=== PATIENT | female | born 1995 | race Caucasian/White ===

== ENCOUNTER 2017-12-01 19:45 | Emergency (ER) | payer MEDICAID, SELFPAY ==
[2017-12-01 19:47] VITALS: BP 134/108; PULSE 95; RESP 20; TEMP 36.7; O2SAT 95; BMI 23.2
[2017-12-01 20:50] VITALS: O2SAT 97
--- NOTE | 2017-12-01 20:52 | ED.VISSUMM ---
- ER Visit Summary Date of Service: 12/01/17 Chief Complaint: Cough History of Present Illness: The patient is a 22 F with no primary care physician. She reports that she has a cough began 1 week ago. Is productive yellow sputum without blood. She has had subjective fever and chills. She has been wheezing. She does not have an inhaler. She has had a use inhaler in the past. She reports that she has mild shortness of breath with exertion. She denies any chest pain. No sore throat. No other complaints. Physical Examination: Vitals: Stable. Afebrile. General: Well-nourished and well-developed. Head: Normocephalic atraumatic. HEENT: Serous effusion on the right. Posterior oropharyngeal erythema. No tonsillar exudate or enlargement. No peritonsillar abscess Neck: Supple, no lymphadenopathy. No JVD. Nontender. Cardiovascular: Regular rate and rhythm. No murmurs. Respiratory: No respiratory distress. Clear to auscultation bilaterally. Abdominal: Soft, nontender, nondistended, normal bowel sounds. No guarding, rebound, or peritoneal signs. Back: Nontender. Extremities: Nontender, no edema. Skin: Normal color, no rash. Neurologic: Alert and oriented ?3. Cranial nerves II through XII are intact. Normal strength and sensation. Psych: Normal affect. Test Results: Chest x-ray is normal. Emergency Department Course and Treatment: Patient was treated with albuterol Atrovent aerosols. She was given Zithromax and prednisone p.o. She is resting comfortably. Treatment Plan: Patient will be discharged on Zithromax, 4 day burst of prednisone, and albuterol MDI. Instructed to follow-up Dr. Floyd in 3-5 days if not improving. Return to the emergency department for any worsening symptoms. Disposition: To home in improved and stable condition. Impression: 1. URI. 2. Tobacco abuse. This note was generated with [employer] dictation software. It may contain incorrect words, spelling, and punctuation that were not noted in review of the chart prior to signing ED Disposition - Plan for ED Patient: Disposition: Home or Assisted Living Chief Complaint: Cough Instructions: ED Upper Resp Infec Abx Tx Prescriptions: Azithromycin [Zithromax] 250 mg PO DAILY #4 tablet Prednisone [Deltasone] 40 mg PO DAILY #10 tablet Referrals: Kerry Floyd MD [STAFF PHYSICIAN] - 3-5 Days if not improving
[2017-12-01] MEDS: INHALER, ASSIST DEVICES 1 EACH SPACER INHALATION (20:55)
[2017-12-01] MEDS: Ipratropium/Albuterol Sulfate 3 ML AMPUL.NEB INHALATION (20:56)
[2017-12-01 20:58] VITALS: PULSE 98; RESP 18
--- NOTE | 2017-12-01 21:18 | ED.RN ---
Pt was seen walking out without medications or discharge paperwork at 2109.
== END 2017-12-01 21:24 | disposition home or self-care (01) ==
PROVIDERS: Emergency Provider Emergency Medicine
DX: J06.9 Acute upper respiratory infection, unspecified (principal); Z72.0 Tobacco use
CPT/HCPCS: 71046; 94640; 94664; 99282

== ENCOUNTER 2017-12-07 00:14 | Emergency (ER) | payer MEDICAID, SELFPAY ==
[2017-12-07 00:14] VITALS: BP 134/96; PULSE 92; RESP 16; TEMP 36.4; O2SAT 99; BMI 22.6
--- NOTE | 2017-12-07 00:28 | ED.DCSUM_ITS ---
- ER Visit Summary Date of Service: 12/07/17 Chief Complaint: Left third finger swelling History of Present Illness: The patient is a 22 F presents to the emergency department with an abscess on her left finger. Patient states that she cut the finger about a week ago. States that it been healing up okay, but then she noticed some redness. She tried put the finger with a needle and some pus came out. She then cut it with a wood box maker yesterday. She states since then, the redness has increased. She states she began have some redness on the back of her hand. She denies any fevers or chills. She does have a history of prior staph infection. She takes no daily medications. Her tetanus is up-to-date. Physical Examination: Exam is relatively unremarkable. Patient does have localized abscess over the mid phalanges on the palmar aspect of the left third finger. There is some superficial streaking on the dorsum of the hand that does not cross the wrist. She is able to extend the finger. There is no pain palpation along the flexor sheath. There is no significant edema of the finger. Her pulses are normal. Her two-point discrimination is preserved. Test Results: [] Emergency Department Course and Treatment: The patient is a superficial abscess over the pad of her mid phalanges on the left third finger. There is no evidence of flexor tenosynovitis. She underwent digital block. The area was cleaned and prepped. Small incision was made. Loculations and purulence were able to be expressed. I did leave the area open but culture was obtained. The patient did have improvement of her symptoms. She will be placed on Bactrim. She will be given outpatient follow-up with plastic surgery for wound reevaluation. I did certified substance abuse counselor her that if her symptoms are not improving in the next 24-48 hours, she needs to return here for reevaluation. She is comfortable this plan of care. Treatment Plan: [] Disposition: Discharge Impression: Superficial abscess left 3rd finger with I+D This note was generated with [employer] dictation software. It may contain incorrect words, spelling, and punctuation that were not noted in review of the chart prior to signing ED Disposition - Plan for ED Patient: Disposition: Home or Assisted Living Chief Complaint: Cellulitis Instructions: ED Abscess IandD Prescriptions: Hydrocodone Bitart/Apap 5-325 [Sidney 5MG-325MG] 1 tab PO Q4H PRN PRN 2 Days #5 tab PRN Reason: Pain Smz/Tmp Ds [Bactrim Ds] 1 tab PO BID #14 tab Referrals: Goran Archer MD [STAFF PHYSICIAN] -
[2017-12-07] MEDS: Smz/Tmp Ds Tablet 1 TABLET PO (00:33)
[2017-12-07] MEDS: HYDROcodone Bitartrate/Apap 5/325 Tablet PO (00:33)
[2017-12-07] MEDS: Bupivacaine Mpf 0.5% 30 ML VIAL INFILT (00:33)
[2017-12-07 01:26] VITALS: PULSE 88; RESP 16
== END 2017-12-07 01:28 | disposition home or self-care (01) ==
LOC: ED 00:30
PROVIDERS: Emergency Provider Emergency Medicine
DX: L02.512 Cutaneous abscess of left hand (principal); Z72.0 Tobacco use
CPT/HCPCS: 26010; 10060; 87070; 87077; 87186; 87205; 99284

== ENCOUNTER 2017-12-25 21:37 | Emergency (ER) | payer MEDICAID, SELFPAY ==
[2017-12-25 21:39] VITALS: BP 123/84; PULSE 97; RESP 24; TEMP 36.8; O2SAT 90; BMI 22.3
--- NOTE | 2017-12-25 22:05 | RAD_ITS ---
STUDY: X-RAY CHEST REASON FOR EXAM: Female, 22 years old. Wheeze and coughing. TECHNIQUE: PA and lateral chest. COMPARISON: 12/01/2017. FINDINGS: The lungs are clear and expanded. There is no demonstrated pleural abnormality. Normal size heart. Normal mediastinum and roger. Normal visualized pulmonary arteries. Normal visualized aortic arch and descending thoracic aorta. Normal visualized thoracic spine. Normal visualized ribs, clavicles, and shoulders. There is no demonstrated abnormality of the visualized soft tissue structures of the upper abdomen. RAD/Chest PA and Lateral IMPRESSION: Normal x-ray examination of the chest. Electronically Signed: Desiree Lockett MD at 22:20 EDT Tel , Service support ,
[2017-12-25 22:15] VITALS: PULSE 96; RESP 18
[2017-12-25] MEDS: Ipratropium/Albuterol Sulfate 3 ML AMPUL.NEB INHALATION (22:15)
[2017-12-25] MEDS: Albuterol 2.5 MG/3 ML VIAL.NEB. INHALATION ×2 (22:15)
[2017-12-25] MEDS: predniSONE 20 MG Tablet 60 MG PO (22:26)
[2017-12-25 23:27] VITALS: O2SAT 90
--- NOTE | 2017-12-25 23:44 | ED.VISSUMM ---
- ER Visit Summary Date of Service: 12/25/17 Chief Complaint: [Shortness of breath] History of Present Illness: The patient is a 22 F [presents to the emergency department with complaint of shortness of breath for the last 2 weeks. Patient's had cough but mostly clear phlegm coming up. Patient states that typically she feels pretty short of breath when she wakes up in the morning. Patient was seen in the emergency department for similar complaints a couple weeks ago and was dispensed an albuterol MDI which she is run out of. Patient does have a history of asthma and seasonal allergies. She denies recent travel or surgery. Patient denies any chest pain.] Physical Examination: [HEENT-PERRLA, EOMI. Cranial nerves II through XII grossly intact. TMs clear. Mucous membranes moist. No adenopathy. Cardiovascular-regular rate and rhythm without murmur or ectopy Lungs-diminished bilaterally with expiratory wheezes noted bilaterally. Mild tachypnea. No accessory muscle use or retractions. Abdomen-normoactive bowel sounds, soft, nontender, no rebound or rigidity, no peritoneal signs. Extremities-intact ?4, normal range of motion, normal pulses, atraumatic] Test Results: [Chest x-ray obtained was normal] Emergency Department Course and Treatment: [Patient was given DuoNeb aerosol followed by albuterol aerosols. She was given prednisone 60 mg p.o. Patient did feel improved after treatment. Patient was ambulated in the department and her pulse ox was between 90 and 95% actually micki with ambulation.] Treatment Plan: [I discussed with patient possible admission versus outpatient treatment given that her peak flows here or anywhere from 200-250. Patient does not want to be admitted however and would prefer to follow-up with pulmonology and primary care as an outpatient.] Patient will be given albuterol MDI and a prescription for prednisone. Disposition: [Discharged home in stable condition]. Patient advised to return if increasing shortness of breath or condition should worsen anyway. Impression: [Asthma exacerbation] This note was generated with [employer] dictation software. It may contain incorrect words, spelling, and punctuation that were not noted in review of the chart prior to signing ED Disposition - Plan for ED Patient: Chief Complaint: Shortness of Breath Referrals: Care Physician,No Primary [Primary Care Provider] -
--- NOTE | 2017-12-25 23:47 | ED.DEP ---
ED Disposition - Plan for ED Patient: Chief Complaint: Shortness of Breath Instructions: ED Reactive Airway Disease Prescriptions: Albuterol Inhaler [Ventolin Hfa] 2 puff INHALATION Q4H PRN PRN #1 inhaler PRN Reason: Wheezing Prednisone [Deltasone] 20 mg PO BID #10 tab Referrals: Care Physician,No Primary [Primary Care Provider] - Estevan Munoz MD [STAFF PHYSICIAN] - 3-5 Days Jj Harley MD [STAFF PHYSICIAN] - 3-5 Days
[2017-12-26 00:06] VITALS: PULSE 88; RESP 19; O2SAT 93
--- NOTE | 2017-12-26 00:06 | ED.RN ---
DISCHARGE INSTRUCTIONS GIVEN TO AND REVIEWED WITH PATIENT, PATIENT DENIES QUESTIONS OR CONCERNS AND VOICES UNDERSTANDING OF DISCHARGE INSTRUCTIONS. PT AMBULATES OUT OF ROOM WITHOUT DIFFICULTY.
--- NOTE | 2017-12-27 10:20 | CM.ED ---
ED CALLBACK: Follow-up call placed to patient. Patient states she is feeling a lot better. She is taking her prescriptions. When I inquired whether she had made her follow-up appointments the patient said, I do not do follow-ups. I just come to the ER when I need anything. I reviewed the rationale for follow-up appointments and preventative care visits. Patient expressed understanding. She asked for the addresses and phone numbers to the recommended providers. I provided this information. Patient states, Thank you for your concern. Patient denies any further needs or questions at this time.
== END 2017-12-26 00:07 | disposition home or self-care (01) ==
PROVIDERS: Emergency Provider Emergency Medicine
DX: J45.901 Unspecified asthma with (acute) exacerbation (principal); Z72.0 Tobacco use
CPT/HCPCS: 71046; 94640; 99284

== ENCOUNTER 2018-01-11 09:56 | Emergency (ER) | payer MEDICAID, SELFPAY ==
[2018-01-11 09:57] VITALS: BP 145/73; PULSE 102; RESP 18; TEMP 36.6; O2SAT 98; BMI 19.5
[2018-01-11 10:14] VITALS: RESP 16
[2018-01-11 10:15] VITALS: BP 130/99; PULSE 80; RESP 16; O2SAT 99
--- NOTE | 2018-01-11 10:24 | ED.DCSUM_ITS ---
- ER Visit Summary Date of Service: 01/11/18 Chief Complaint: Nausea, vomiting and diarrhea. History of Present Illness: The patient is a 22 F history of asthma, heart murmur and has a history of drug abuse including heroin, crack cocaine and marijuana. Patient states she has not used heroin for 1 week. She does do IV heroin. She has used crack cocaine and marijuana within the last week. She states that she has felt ill for the last week. Fever as high as 101. With associated nausea, vomiting and diarrhea. Body aches. She denies any chest pain. She denies any shortness of breath. She denies any dysuria. States previously she had sepsis from IV drug abuse. But was never diagnosed with any endocarditis or any valvular vegetative lesions. Physical Examination: Young female. No acute distress. Vital signs are stable. Afebrile. Temperature 97.9. Pulse ox 98% on room air no hypoxia. HEENT exam mildly dry mucous membranes. Posterior pharynx normal. Neck nontender no lymphadenopathy. No meningismus. Lungs clear to auscultation bilaterally. Heart regular rhythm no rate about 100. Abdomen is soft and nondistended. Normal bowel sounds. No peritoneal signs. Minimal epigastric tenderness. No hernias or masses. No obstruction. She is moving all 4 extremities. They are neurovascularly intact. There is no rashes or abscesses. She has israel on the back of both hands where she injects her IV drugs. There is no cellulitis. Back nontender. Neurologically she is awake alert with no focal motor deficits. Test Results: Urine electrolytes unremarkable. Potassium 3.4. Normal creatinine and gap. Liver enzymes normal. Lipase is slightly elevated 632 but my clinical suspicion for an pancreatitis is low. She is never had it before. UA normal. Lactic acid 1.1. Chest x-ray two-view shows no acute abnormality is read both by myself and the radiologist. Emergency Department Course and Treatment: Treated with IV fluids and IV Zofran. Multiple repeat exams patient is doing well at 1524. Her abdomen is benign. She has had multiple doses IV Zofran and now IV Phenergan. She feels like eating. She will have a p.o. challenge if she does well she will be discharged home. Treatment Plan: Fluids and rest. Increase diet slowly. Zofran as needed for nausea. Continue with your drug rehab program. Disposition: Discharge Impression: Acute nausea, vomiting and diarrhea Mild dehydration History of heroin, cocaine and marijuana abuse Possible early pancreatitis This note was generated with [employer] dictation software. It may contain incorrect words, spelling, and punctuation that were not noted in review of the chart prior to signing ED Disposition - Plan for ED Patient: Chief Complaint: Nausea/Vomiting/Diarrhea Referrals: Care Physician,No Primary [Primary Care Provider] -
[2018-01-11] MEDS: Ondansetron ODT 4 MG Tablet PO (11:09)
[2018-01-11] MEDS: 0.9% Normal Saline 1,000 ML 1000 ML IV (11:45)
[2018-01-11 11:57] LABS: Absolute Lymphocyte Count 1.95 X10^3/ul (0.83-4.51); Absolute Neutrophil Count 6.9 X10^3/uL (2.0-7.7); Basophil# 0.04 X10^3/uL; Basophil% 0.4 % (0-1); Eosinophil# 0.06 X10^3/uL; Eosinophils% 0.6 % (0-5); Hematocrit 44.3 % (37-47); Hemoglobin 14.9 g/dl (12.0-15.0); Lymphocyte # 1.95 X10^3/ul (4.0); Lymphocyte % 20.1 % (19-41); Mean Corp Hgb Conc 33.6 g/gl (32-36); Mean Corpuscular Hgb 29.2 pg (27.0-32.0); Mean Corpuscular Volume 86.9 fL (81-99); Mean Platelet Vol. 9.9 fl (6.2-12.0); Monocyte# 0.71 X10^3/uL; Monocyte% 7.3 % (0-10); Neutrophil # 6.94 X10^3/uL (2.7-7.7); Neutrophil % 71.4 % (47-70); Platelet Count 310 K/mm3 (150-450); RBC Distribution Width CV 12.7 % (11.6-14.6); White Blood Count 9.7 K/mm3 (4.4-11.0)
[2018-01-11 12:00] LABS: POSITIVE COUNT NO; POSITIVE DIFFERENTIAL NO; POSITIVE MORPHOLOGY NO
[2018-01-11 12:05] LABS: AST(SGOT) 8 U/L (15-37); Alanine Aminotransfer ALT/SGPT 16 U/L (13-56); Albumin, Serum 4.4 g/dL (3.2-5.0); Alkaline Phosphatase 76 U/L (45-117); Anion Gap 10 (5-15); BUN 21 mg/dL (7-18); BUN/Creat Ratio 22.2 RATIO (10-20); Bilirubin, Direct 0.22 mg/dL (0.00-0.30); Calcium,Total 9.9 mg/dL (8.5-10.1); Chloride 104 mmol/L (98-107); Creatinine, Serum 0.95 mg/dL (0.55-1.02); EST Glomerular Filtration Rate 77 mL/min (>60); Est Glom Filt Rate - Afr Amer 94 mL/min (>60); Estimated Creatinine Clearance 82.44 ml/min; Globulin 3.8 g/dL (2.2-4.2); Glucose 99 mg/dL (74-106); Lipase 632 U/L (73-393); Potassium 3.4 mmol/L (3.5-5.1); Protein, Total 8.2 g/dL (6.4-8.2); Sodium Level 141 mmol/L (136-145)
[2018-01-11 12:22] LABS: Lactic Acid 1.1 mmol/L (0.4-2.0)
[2018-01-11 12:25] VITALS: BP 130/95; PULSE 75; RESP 16; O2SAT 96
[2018-01-11] MEDS: Ondansetron 4 MG/2 ML Vial IV (12:26)
[2018-01-11] MEDS: LORazepam 2 MG/ML Syringe 1 MG IV (12:27)
--- NOTE | 2018-01-11 12:36 | RAD_ITS ---
STUDY: X-RAY CHEST REASON FOR EXAM: Female, 22 years old. Fevers and chills. Nausea and vomiting. Heroin withdrawal. TECHNIQUE: AP and lateral views of the chest. COMPARISON: Comparison is made with prior study dated December 25, 2017. FINDINGS: EKG electrodes are seen. The lungs are clear and expanded. There is no demonstrated pleural abnormality. Normal size heart. Normal mediastinum and roger. Normal visualized pulmonary arteries. Normal visualized aortic arch and descending thoracic aorta. Normal visualized thoracic spine. Normal visualized ribs, clavicles, and shoulders. There is no demonstrated abnormality of the visualized soft tissue structures of the upper abdomen. RAD/Chest PA and Lateral IMPRESSION: Normal x-ray examination of the chest. Electronically Signed: Jasvir Huggins MD at 14:09 EDT Tel [phone], Service support ,
[2018-01-11 14:35] VITALS: BP 135/103; PULSE 81; RESP 16; O2SAT 97
[2018-01-11 14:35] LABS: Red Blood Cells-Urine 0 SEEN /hpf (0-5)
[2018-01-11 14:37] LABS: Color, Urine Yellow (Yellow); Glucose, Dipstick Normal (Normal); Ketone-Dipstick Negative (Negative); Leukocyte Esterase-Dipstick 25 /ul (Negative); Nitrite-Dipstick Negative (Negative); Occult Blood-Urine Negative /ul (Negative); Protein-Dipstick 30 mg/dl (Negative); Specific Gravity, Urine 1.015 (1.002-1.030); Urine Bilirubin Dipstick Negative (Negative); Urine Clarity Sl. Cloudy (Clear); Urine Urobilinogen Normal (Normal)
[2018-01-11 14:44] LABS: Amorphous Sediment 1+; Bacteria 1+ /hpf (None Seen); Mucous, Urine 1+ /hpf (<or=2+); Squamous Epithelial Cells - UA 0-5 SEEN /hpf (5-10); White Blood Cells 0-5 SEEN /hpf (0-5)
--- NOTE | 2018-01-11 15:30 | ED.DEP ---
ED Disposition - Plan for ED Patient: Disposition: Home or Assisted Living Chief Complaint: Nausea/Vomiting/Diarrhea Instructions: ED Vomiting Diarrhea Nonspecific Ad Prescriptions: Ondansetron [Zofran Odt] 8 mg PO Q8H PRN PRN #10 PRN Reason: Nausea Referrals: Otis Broussard MD [NON-STAFF] - Additional Instructions: Plenty of fluids and rest. Harmon diet increase slowly. Zofran as needed for nausea. Follow-up with primary care physician.
[2018-01-11 15:40] VITALS: PULSE 54; RESP 18
== END 2018-01-11 15:42 | disposition home or self-care (01) ==
PROVIDERS: Emergency Provider Emergency Medicine
DX: R11.2 Nausea with vomiting, unspecified (principal); R19.7 Diarrhea, unspecified; E86.0 Dehydration; R10.9 Unspecified abdominal pain; R50.9 Fever, unspecified; R79.89 Other specified abnormal findings of blood chemistry; J45.909 Unspecified asthma, uncomplicated; F14.10 Cocaine abuse, uncomplicated; F11.10 Opioid abuse, uncomplicated; F12.10 Cannabis abuse, uncomplicated; Z72.0 Tobacco use
CPT/HCPCS: 71046; 80048; 80076; 81001; 83605; 83690; 85025; 87040; 96361; 96374; 96375; 99285; J7030; A4216; J2405

== ENCOUNTER 2018-03-15 21:46 | Emergency (ER) | payer MEDICAID, SELFPAY ==
[2018-03-15 21:47] VITALS: BP 120/57; PULSE 109; RESP 16; TEMP 36.4; O2SAT 97; BMI 20.1
--- NOTE | 2018-03-15 22:39 | ED.RN ---
THIS RN WITNESSED PT LEAVE EMERGENCY DEPARTMENT AND WALK OUTSIDE WITH SIGNIFICANT OTHER, STATING HAVE A GOOD NIGHT WHEN LEAVING.
== END 2018-03-15 23:07 | disposition left against medical advice (07) ==
LOC: ED 22:45
PROVIDERS: Emergency Provider Emergency Medicine
DX: Z53.21 Procedure and treatment not carried out due to patient leaving prior to being seen by health care provider (principal)
CPT/HCPCS: 99281

== ENCOUNTER 2018-03-25 22:37 | Emergency (ER) | payer MEDICAID, SELFPAY ==
[2018-03-25 22:38] VITALS: BP 162/78; PULSE 94; RESP 16; TEMP 36.3; O2SAT 96; BMI 22.6
--- NOTE | 2018-03-25 22:56 | ED.VISSUMM ---
- ER Visit Summary Date of Service: 03/25/18 Chief Complaint: [] Right buttock abscess History of Present Illness: The patient is a 23 F stated she developed a right buttock abscess yesterday. It is been growing today and has been sore. She did an incision and drainage with a sterile razor blade this evening. She got a small amount of fluid out. She wanted to come in to get antibiotics. She has had these before. Current severity is mild. Worsened by touching it. Relieved by nothing. She stated she is noticed she has a swollen lymph node in her right groin. Wanted to get that checked out as well. She is never had that before. She is a heroin addict. Her last use was today. Denies any fevers chills nausea vomiting or other symptoms. Physical Examination: [] Vital signs reviewed General: Well-nourished well-developed Head: Normocephalic atraumatic Eyes: Pupils equal round and reactive to light extraocular movements intact ENT: TMs clear no hemotympanum no trauma Neck: Nontender full range of motion Cardiovascular: Regular rate rhythm no murmurs normal S1-S2 Respiratory no distress clear to auscultation bilaterally chest nontender Abdomen soft nontender nondistended normal bowel sounds no masses buttock: Right posterior buttock has a quarter size nonfluctuant hard indurated abscess. There is a 3 x 3 mm central area that she has in size. There is no drainage. She has 2 cm of surrounding cellulitis circular Back: Nontender no CVA tenderness Extremities: It has a dime size swollen lymph node in her right groin. It is not red or infected. Active range of motion ?4 extremities no trauma Skin: Normal color no trauma Neuro alert oriented cranial nerves II through XII intact normal strength sensation reflexes Test Results: [] Emergency Department Course and Treatment: [] Given Bactrim. I feel she likely has staph aureus abscess with reactive lymph node. She will be given antibiotics for home. She will use ibuprofen and instructed to not use heroin. Treatment Plan: [] Disposition: [] Impression: [] Right buttock abscess Right buttock cellulitis Right inguinal lymph node reaction This note was generated with [employer] dictation software. It may contain incorrect words, spelling, and punctuation that were not noted in review of the chart prior to signing ED Disposition - Plan for ED Patient: Chief Complaint: Abscess Referrals: NOT,DEFINED [Primary Care Provider] -
--- NOTE | 2018-03-25 22:59 | ED.DEP ---
ED Disposition - Plan for ED Patient: Disposition: Home or Assisted Living Chief Complaint: Abscess Instructions: ED Skin Infec MRSA Suspect Conf Prescriptions: Smz/Tmp Ds [Bactrim Ds] 1 tab PO BID #20 tab Referrals: NOT,DEFINED [Primary Care Provider] - Edy Ziegler DO [NON CLINICAL AFFILIATE] -
[2018-03-25 23:02] VITALS: BP 162/78; PULSE 94; RESP 16; TEMP 36.3; O2SAT 96
[2018-03-25] MEDS: Smz/Tmp Ds Tablet 1 TABLET PO (23:26)
[2018-03-25 23:28] VITALS: BP 150/70; PULSE 95; TEMP -8.8; TEMP 16; O2SAT 98
== END 2018-03-25 23:28 | disposition home or self-care (01) ==
LOC: ED 23:24
PROVIDERS: Emergency Provider Emergency Medicine
DX: L02.31 Cutaneous abscess of buttock (principal); L03.317 Cellulitis of buttock; R59.0 Localized enlarged lymph nodes; F11.20 Opioid dependence, uncomplicated; Z72.0 Tobacco use
CPT/HCPCS: 99283

== ENCOUNTER 2018-04-03 15:18 | Emergency (ER) | payer MEDICAID, SELFPAY ==
[2018-04-03 15:19] VITALS: BP 120/91; PULSE 112; RESP 18; TEMP 36.6; O2SAT 99; BMI 21.9
[2018-04-03 19:16] VITALS: BP 123/100; PULSE 55; RESP 20; O2SAT 100
[2018-04-03] MEDS: 0.9% Normal Saline 1,000 ML 1000 ML IV (19:19)
[2018-04-03] MEDS: Ondansetron 4 MG/2 ML Vial IV (19:21)
[2018-04-03 20:14] LABS: Pregnancy, Serum, hCG Quali. NEGATIVE Negative (0-9 Nonpreg)
--- NOTE | 2018-04-03 20:37 | ED.VISSUMM ---
- ER Visit Summary Date of Service: 04/03/18 Chief Complaint: Body aches History of Present Illness: The patient is a 23 F who states that she is a heroin addict. She has been unable to get to [facility] for the past several days to get her heroin and started going through withdrawal. She used meth a couple days ago to cope with the withdrawal symptoms but states that is not helping. She notes decreased p.o. She has some vomiting diarrhea. She is very thirsty she notes chills and sweats. She does not wish to enter detox. She is requesting some sedatives to help her sleep. Physical Examination: Afebrile vital signs are stable noted heart rate of 112. Gen: Well-nourished well-developed Head: Normocephalic atraumatic Eyes: Perrl EOMI ENT: TMs clear no rhinorrhea moist mucous membranes Neck: Supple no lymphadenopathy no JVD nontender CVS: Regular rate tachycardic rhythm no murmurs normal S1-S2 Respiratory: No distress clear to auscultation bilaterally chest nontender Abdomen: Soft nontender nondistended normal bowel sounds no masses Back: Nontender Extremity: Nontender no edema Skin: Skin scabs extensively as well as track israel. Evidence of piloerection Neuro: alert orientated ?3 CN II-XII intact normal strength sensation reflexes gait cerebellar Psych: Agitated and labile affect Test Results: Patient is not . Emergency Department Course and Treatment: Patient received IV fluids and Zofran. She again declines rehab. I will write for Vistaril as I do not believe provided a controlled substance through polysubstance drug abuser on outpatient basis is appropriate medical care. She is asked for a ride to the pharmacy she is asked for christiano flores telemetry and ice. I believe the patient can be safely discharged Impression: 1. Heroin withdrawal 2. Polysubstance drug abuse This note was generated with [employer] dictation software. It may contain incorrect words, spelling, and punctuation that were not noted in review of the chart prior to signing ED Disposition - Plan for ED Patient: Disposition: Home or Assisted Living Chief Complaint: General Illness Instructions: ED Withdrawal Narcotic Prescriptions: Ondansetron [Zofran Odt] 4 mg PO Q6H PRN PRN #14 tab PRN Reason: Nausea hydrOXYzine pamoate capsule [Vistaril] 50 mg PO TID PRN PRN #30 cap PRN Reason: Anxiety Referrals: EIGHTY,ONE [STAFF PHYSICIAN] - As soon as possible
--- NOTE | 2018-04-03 20:49 | ED.RN ---
IV DC'ED, CATHETER INTACT, SMALL GAUZE DRESSING PLACED. DISCHARGE INSTRUCTIONS GIVEN TO AND REVIEWED WITH PATIENT, PATIENT DENIES QUESTIONS OR CONCERNS AND VOICES UNDERSTANDING OF DISCHARGE INSTRUCTIONS. PT AMBULATES OUT OF ROOM WITHOUT DIFFICULTY.
[2018-04-03 20:50] VITALS: BP 133/93; PULSE 69; RESP 17; O2SAT 100
== END 2018-04-03 20:50 | disposition home or self-care (01) ==
PROVIDERS: Emergency Provider Emergency Medicine
DX: F11.23 Opioid dependence with withdrawal (principal); F15.10 Other stimulant abuse, uncomplicated; R11.10 Vomiting, unspecified; R19.7 Diarrhea, unspecified; J45.909 Unspecified asthma, uncomplicated; F32.9 Major depressive disorder, single episode, unspecified; F41.9 Anxiety disorder, unspecified; Z72.0 Tobacco use; Z79.899 Other long term (current) drug therapy
CPT/HCPCS: 84703; 96361; 96374; 99284; J7030; A4216; J2405

== ENCOUNTER 2018-07-17 12:25 | Observation (INO) | payer MEDICAID, SELFPAY ==
[2018-07-17 12:26] VITALS: BP 135/78; PULSE 57; RESP 14; TEMP 36.3; O2SAT 100; BMI 19.3
--- NOTE | 2018-07-17 14:48 | ED.VIS.GEN ---
History of Present Illness Chief Complaint: Substance Abuse Detail of Chief Complaint: Sent for medical clearance since patient not alert Informant: Patient Onset: - - Patient not a good informant Context: - - Patient states she has been using illicit drugs for years Timing: - - Years Quality: Depressed level of consciousness Location: Not applicable Current Severity: Moderate Maximum Severity: Severe Worsened by: Uncertain Relieved by: Apparently nothing Associated Symptoms: Patient not able to elaborate Narrative: Patient is a 23-year-old female. She states her drug of choice is fentanyl. She states she has been using fentanyl for years. She reports last used 2 days ago. Patient denies prior history of skin infection or endocarditis. Patient states she has not been tested for hepatitis or HIV in greater than 1 year. Prior similar symptoms: No Recent Illness/Hospitalization: No - Past Medical History (1) Illicit IV drug use Status: Chronic Past Medical History - Allergies and Home Meds Allergies/Adverse Reactions: Allergies season Allergy (Uncoded 04/03/18 15:24) Itching Primary Care Physician: Care Physician,No Primary [Primary Care Provider] - Past Medical History: - - IV drug use Surgical History: noncontributory Lives: Spouse/ Significant Other Smoking Status: Current every day smoker Alcohol: Rare Drugs: - - Opiates IV - Family History Maternal Family History: Reports: - - Patient notes both her maternal and paternal family history of severe substance abuse. Patient denies any other market family history including heart disease, diabetes or cancer. Paternal Family History: Reports: - - Patient notes both her maternal and paternal family history of severe substance abuse. Patient denies any other market family history including heart disease, diabetes or cancer. She does note that her father does have HIV associated with substance IV drug abuse. Review of Systems ROS: Unable to Obtain - Decreased level of consciousness. Patient with poverty of speech General: Reports: Malaise, Sweats. Denies: Chills, Fever, Weight loss Eyes: Denies: Visual changes - bilaterally, Blurred Vision - bilaterally Cardiovascular: Denies: Chest pain, Palpitations Respiratory: Reports: Cough. Denies: Dyspnea, Dyspnea on exertion Gastrointestinal: Reports: Nausea Musculoskeletal: Reports: Myalgias, Arthralgias. Denies: Neck pain, Back pain Skin: Reports: Rash Neurological: Reports: Weakness. Denies: Headache, Parasthesia, Numbness Psych: Reports: Depression Hematologic: Denies: Easy bruising, Easy bleeding Allergy: Denies: Uticaria Physical Exam Vital Signs/Narrative: Vital Signs Temp Pulse Resp BP Pulse Ox 07/17/18 12:26 97.4 F L 57 L 14 135/78 H 100 Inital Vital Signs reviewed: Yes General: Well developed, Cachectic, Unkempt Head: Normocephalic, Atraumatic Eyes: Perrl, EOMI. Negative for: Pale conjunctiva, Scleral icterus, - ENT: No rhinorrhea, TM's clear, Dry mucous membranes Neck: Supple, Nontender, No lymphadenopathy, No JVD Cardiovascular: Regular rhythm, No murmurs, Normal S1, Normal S2 - S2 is prominent and question of a split S2., Bradycardia Respiratory: No distress, CTA bilaterally, Decreased Air Movement Abdomen: Soft, Nontender, Nondistended, Normal bowel sounds Rectal: Deferred Back: Nontender, Normal Inspection Extremities: Nontender, No edema, - - Patient has bruising dorsum of right hand. There is multiple track israel noted right and left upper extremity. Skin: Normal color, Rash - Patient appears to have israel on her face secondary to picking at her skin. There are areas of crusting. There is no evidence of cellulitis.. Negative for: No rash, Cyanosis, Diaphoresis, Jaundice Neurological: Oriented x3, Cranial nerves II-XII grossly intact, Normal Strength, Normal Sensation, Normal DTR, - - Gait was not assessed because of fear patient may fall.. Negative for: Alert Psychological: - - Poverty of speech. Flat to depressed affect. Diagnostic/Tx/Re-eval Laboratory Results 07/17/18 07/17/18 07/17/18 16:13 16:58 16:58 WBC 10.7 RBC 4.84 Hgb 14.2 Hct 41.8 MCV 86.4 MCH 29.3 MCHC 34.0 RDW 13.0 RDW Differential 41.5 Plt Count 334 MPV 9.3 Immature Gran % (Auto) 0.100 Neut % (Auto) 88.0 H Lymph % (Auto) 9.4 L Mcduffie % (Auto) 2.2 Eos % (Auto) 0.1 Baso % (Auto) 0.2 Absolute Neuts (auto) 9.4 H Absolute Lymphs (auto) 1.00 Total Counted Not Reportable Sodium 137 Potassium 3.5 Chloride 105 Carbon Dioxide 26.0 Anion Gap 6 BUN 11 Creatinine 0.78 Estim Creat Clear Calc 97.95 Est GFR (MDRD) Af Amer 117 Est GFR (MDRD) Non-Af 97 BUN/Creatinine Ratio 14.2 Glucose 110 H Calcium 9.4 Serum , Qual Urine Opiates Screen POSITIVE H Urine Methadone Screen NEGATIVE Ur Barbiturates Screen NEGATIVE Ur Phencyclidine Scrn NEGATIVE Ur Amphetamines Screen NEGATIVE U Methamphetamin-MDMA POSITIVE H U Benzodiazepines Scrn NEGATIVE Urine Cocaine Screen NEGATIVE U Cannabinoids Screen NEGATIVE Ur Drug Screen Comment Ethyl Alcohol 07/17/18 07/17/18 16:58 16:58 WBC RBC Hgb Hct MCV MCH MCHC RDW RDW Differential Plt Count MPV Immature Gran % (Auto) Neut % (Auto) Lymph % (Auto) Mcduffie % (Auto) Eos % (Auto) Baso % (Auto) Absolute Neuts (auto) Absolute Lymphs (auto) Total Counted Sodium Potassium Chloride Carbon Dioxide Anion Gap BUN Creatinine Estim Creat Clear Calc Est GFR (MDRD) Af Amer Est GFR (MDRD) Non-Af BUN/Creatinine Ratio Glucose Calcium Serum , Qual NEGATIVE Urine Opiates Screen Urine Methadone Screen Ur Barbiturates Screen Ur Phencyclidine Scrn Ur Amphetamines Screen U Methamphetamin-MDMA U Benzodiazepines Scrn Urine Cocaine Screen U Cannabinoids Screen Ur Drug Screen Comment Ethyl Alcohol < 3.0 - Medical Decision Making Screening labs, test and tox screen was obtained. Nursing staff was asked to undress the patient for better examination of her extremities since there is evidence of bruising and multiple track israel. If patient's history is accurate would not expect her to have depressed level of consciousness. Patient is more alert. Tox screen was positive for opiates and methamphetamine. Hospitalist has seen the patient and she will be admitted to [facility] for opiate detox. ED Disposition - Plan for ED Patient: Disposition: Acute Care [facility] Diagnosis: Opiate dependence, continuous, Depressed level of consciousness, Methamphetamine addiction Referrals: Care Physician,No Primary [Primary Care Provider] -
[2018-07-17 16:38] LABS: Amphetamine Urine VISTA NEGATIVE (<1000 ng/mL); Barbiturate Urine VISTA NEGATIVE (< 200 ng/mL); Benzodiazepine Urine VISTA NEGATIVE (< 200 ng/mL); Cocaine Urine VISTA NEGATIVE (< 300 ng/mL); Ecstacy Urine VISTA POSITIVE (< 500 ng/mL); Methadone Urine VISTA NEGATIVE (< 300 ng/mL); PCP Urine VISTA NEGATIVE (< 25 ng/mL); THC Urine VISTA NEGATIVE (< 50 ng/mL); Vista UDS pH Range 7
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
--- NOTE | 2018-07-17 16:46 | ED.RN ---
lab notified of ED unable to obtain blood so far.
[2018-07-17 17:01] VITALS: BP 142/88; PULSE 61; RESP 19; O2SAT 100
[2018-07-17 17:10] LABS: Absolute Neutrophil Count 9.4 X10^3/uL (2.0-7.7); Basophil# 0.02 X10^3/uL; Basophil% 0.2 % (0-1); Eosinophil# 0.01 X10^3/uL; Eosinophils% 0.1 % (0-5); Hematocrit 41.8 % (37-47); Hemoglobin 14.2 g/dl (12.0-15.0); Lymphocyte % 9.4 % (19-41); Mean Corpuscular Hgb 29.3 pg (27.0-32.0); Mean Corpuscular Volume 86.4 fL (81-99); Mean Platelet Vol. 9.3 fl (6.2-12.0); Monocyte# 0.23 X10^3/uL; Monocyte% 2.2 % (0-10); Neutrophil # 9.42 X10^3/uL (2.7-7.7); Platelet Count 334 K/mm3 (150-450); RBC Distribution Width SD 41.5 fl (35.1-43.9); Red Blood Count 4.84 M/mm3 (4.2-5.4); White Blood Count 10.7 K/mm3 (4.4-11.0)
[2018-07-17 17:11] LABS: POSITIVE COUNT NO; POSITIVE DIFFERENTIAL NO; POSITIVE MORPHOLOGY NO
[2018-07-17 17:21] LABS: Anion Gap 6 (5-15); BUN 11 mg/dL (7-18); BUN/Creat Ratio 14.2 RATIO (10-20); Calcium,Total 9.4 mg/dL (8.5-10.1); Chloride 105 mmol/L (98-107); Creatinine, Serum 0.78 mg/dL (0.55-1.02); EST Glomerular Filtration Rate 97 mL/min (>60); Est Glom Filt Rate - Afr Amer 117 mL/min (>60); Estimated Creatinine Clearance 97.95 ml/min; Glucose 110 mg/dL (74-106); Potassium 3.5 mmol/L (3.5-5.1); Sodium Level 137 mmol/L (136-145)
[2018-07-17 17:55] LABS: Internal QC Validated? YES +Cl - CLEAR BKGD; Pregnancy, Serum, hCG Quali. NEGATIVE Negative
[2018-07-17 17:56] LABS: Alcohol, Blood (Medical)-Serum < 3.0 mg/dL
[2018-07-17 19:03] VITALS: BP 157/99; PULSE 91; RESP 16; TEMP 37.2; O2SAT 99
[2018-07-17 19:20] LABS: AST(SGOT) 19 U/L (15-37); Alanine Aminotransfer ALT/SGPT 21 U/L (13-56); Albumin, Serum 4.3 g/dL (3.2-5.0); Alkaline Phosphatase 80 U/L (45-117); Bilirubin, Direct 0.18 mg/dL (0.00-0.30); Globulin 3.7 g/dL (2.2-4.2); Magnesium 2.1 mg/dL (1.6-2.6); Phosphorus 2.1 mg/dL (2.5-4.9)
[2018-07-17] MEDS: hydrOXYzine PAM 25 MG Capsule 50 MG PO (19:53)
[2018-07-17] MEDS: Buprenorphine HCl 2 MG TAB.SUBL 4 MG SL (19:54)
[2018-07-17] MEDS: Methocarbamol 750 MG Tablet PO (19:54)
--- NOTE | 2018-07-17 20:04 | NURSING ---
pt refused iv at this time. pt said she has been drinking without any problem
[2018-07-17 20:10] VITALS: BP 151/91; PULSE 93; RESP 18; TEMP 37.3
[2018-07-17 20:13] VITALS: BP 151/91; PULSE 93; RESP 18; TEMP 37.3; O2SAT 100
[2018-07-17 20:20] LABS: HIV - WCH Non-Reactive (Nonreactive)
[2018-07-17] MEDS: traZODone 50 MG Tablet PO (22:56)
[2018-07-17 23:02] VITALS: BP 160/79; PULSE 50; RESP 17; TEMP 36.6; O2SAT 100
[2018-07-18] VITALS (10 sets, daily range): BP systolic 102–164; BP diastolic 62–99; PULSE 43–94; RESP 15–18; TEMP 36.6–37.2; O2SAT 98–100
[2018-07-18] MEDS: Methocarbamol 750 MG Tablet PO (03:22)
[2018-07-18] MEDS: cloNIDine HCl 0.1 MG Tablet PO (03:22)
[2018-07-18] MEDS: Buprenorphine HCl 2 MG TAB.SUBL 4 MG SL ×2 (04:49→12:20)
--- NOTE | 2018-07-18 12:21 | NURSING ---
PT RESTING QUIETLY, EYES CLOSED, RESP EASY
--- NOTE | 2018-07-18 12:38 | NURSING ---
PT RESTING IN BED WITH EYES CLOSED, RESP EASY. AWOKE PT FOR SCHED MEDS. PT BARELY OPENED EYES TO TAKE THE PILLS. ASKED IF SHE IS GOING TO HAVE LUNCH SINCE SHE DIDN'T HAVE ANY BREAKFAST. PT SHOOK HEAD YES WITH EYES REMAINING CLOSED. VISITOR ASLEEP IN CHAIR @ BS.
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
[2018-07-18] MEDS: Na Biphos/Potassium Phosphate PACKET 1 PACKET PO ×2 (15:34→21:03)
--- NOTE | 2018-07-18 15:43 | NURSING ---
PT RESTING QUIETLY IN BED, EYES CLOSED, RESP EASY
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
[2018-07-18] MEDS: Pramipexole Di-HCl 0.25 MG Tablet PO (19:57)
[2018-07-18] MEDS: Buprenorphine HCl 2 MG TAB.SUBL SL (19:57)
[2018-07-18] MEDS: hydrOXYzine PAM 25 MG Capsule PO (20:00)
--- NOTE | 2018-07-18 20:42 | NURSING ---
PT WALKED OUT OF THE HOSPITAL WITH ROGER. SHANDRA CHARGE NURSE NOTIFIED
--- NOTE | 2018-07-18 20:59 | NURSING ---
Pt. not in room when primary nurse HAKAN Silveira rounded. This nurse went to check patients room. All patient's belongings still in room. This nurse called security to let know that patient was not room. Patient did come back up to floor with visitor. This nurse did make patient aware that she is not allowed to leave the floor to smoke per the new vision contract that was signed. Patient admitted to not remembering signing the form. This nurse went over the New vision rules again with patient. Patient agreed not to go outside again and requested a nicotine patch.
[2018-07-18] MEDS: traZODone 50 MG Tablet PO (21:05)
[2018-07-19] MEDS: Buprenorphine HCl 2 MG TAB.SUBL SL ×2 (04:59→11:43)
[2018-07-19] MEDS: Na Biphos/Potassium Phosphate PACKET 1 PACKET PO (04:59)
[2018-07-19 05:07] VITALS: BP 138/86; PULSE 48; RESP 16; TEMP 36.6
[2018-07-19 10:00] VITALS: BP 135/85; PULSE 52; RESP 18; TEMP 37.1
[2018-07-19 10:16] VITALS: BP 135/85; PULSE 52; RESP 18; TEMP 37.1; O2SAT 100
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
[2018-07-19 12:06] LABS: HEPATITIS B SURFACE AG Negative (Negative); Hepatitis A AB, Total Positive (Negative); Hepatitis A IgM Antibody Negative (Negative); Hepatitis B Core AB IgM Negative (Negative); Hepatitis B Core Ab Total Negative (Negative); Hepatitis C Ab <0.1 s/co ratio (0.0-0.9)
--- NOTE | 2018-07-19 12:31 | NURSING ---
CALLED TO NURSES STATION BY ADMINISTRATIVE REPRESENTATIVE STATING PT @ THE DESK & IS LEAVING AMA. THIS NURSE GOT TO THE NURSES STATION, PT WAS GETTING ON THE ELEVATOR. NORBERT FROM [facility] [employer] @ NURSES STATION & STATES THAT SHE SPOKE WITH PT REGARDING DC. PT WANTED TO GO TO A FACILITY THAT WOULD ACCEPT HER & HER BOYFRIEND. NORBERT EXPLAINED FACILITIES DO NOT ALLOW THAT. PT STATES SHE IS LEAVING THEN. CHARGE NURSE HAD PT SIGN AMA FORM.
[2018-07-19 14:31] LABS: Hep B Surface Antibodies Non Reactive (.)
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
== END 2018-07-19 12:18 | disposition left against medical advice (07) | DRG 770 ==
LOC: ED 18:27 → MS2 18:41
PROVIDERS: Admitting Provider Family Medicine; Emergency Provider Emergency Medicine; Visit Provider Internal Medicine
DX: F11.23 Opioid dependence with withdrawal (principal); J45.909 Unspecified asthma, uncomplicated; F41.9 Anxiety disorder, unspecified; F32.9 Major depressive disorder, single episode, unspecified; E83.39 Other disorders of phosphorus metabolism; R64 Cachexia; Z68.20 Body mass index [BMI] 20.0-20.9, adult; F15.20 Other stimulant dependence, uncomplicated; F17.210 Nicotine dependence, cigarettes, uncomplicated; Z59.0 Homelessness
CPT/HCPCS: 36415; 80048; 80076; 80307; 80320; 83735; 84100; 84703; 85025; 86703; 86704; 86705; 86706; 86708; 86709; 86803; 87340; 97802; 99218; 99284; 99406; G0378; G0480